=== PATIENT | male | born 1975 | race Caucasian/White ===

== ENCOUNTER 2018-03-07 11:02 | Inpatient (IN) | payer OTHER ==
[~2018-03-07] VITALS: Ht 188 cm; Wt 68.0 kg
[2018-03-07 11:30] VITALS: BP 131/83
[2018-03-07] MEDS ORDERED: THIAMINE HCL 200 MG/2 ML VIAL IM ONE (11:45)
[2018-03-07] MEDS ORDERED: ONDANSETRON 4 MG/2 ML VIAL IM PRN (11:45)
[2018-03-07] MEDS ORDERED: LOPERAMIDE HCL 2 MG CAPSULE PO PRN ×2 (11:45)
[2018-03-07] MEDS ORDERED: LORAZEPAM 1 MG TABLET PO PRN ×2 (11:45)
[2018-03-07] MEDS ORDERED: MAG HYDROX/AL HYDROX/SIMETH 30 ML LIQUID UDC PO PRN (11:45)
[2018-03-07] MEDS ORDERED: 5 DAY TAPER OF LORAZEPAM -SERENITY PROTOCOL PO PRN (11:45)
[2018-03-07] MEDS ORDERED: diphenhydrAMINE 50 MG CAPSULE PO PRN (11:45)
[2018-03-07] MEDS ORDERED: LORAZEPAM 2 MG/1 ML VIAL IM PRN (11:45)
[2018-03-07] MEDS ORDERED: MAGNESIUM HYDROXIDE 30 ML LIQUID UDC PO PRN (11:45)
[2018-03-07 12:00] VITALS: BP 131/83
[2018-03-07] MEDS ORDERED: NAPH30DR5 OP (12:29)
[2018-03-07] MEDS ORDERED: PROP10DR2 OP (12:29)
[2018-03-07] MEDS: LORAZEPAM 1 MG TABLET PO SCH ×3 (12:53→20:13)
[2018-03-07] MEDS: ONDANSETRON ODT 4 MG TAB.RAPDIS SL PRN (12:54)
[2018-03-07 12:57] LABS: BASOPHILS # (AUTO) 0.1 K/uL (0.0-8.0); BASOPHILS % (AUTO) 1.3 % (0.0-2.0); EOSINOPHILS % (AUTO) 0.2 % (0.0-7.0); HEMATOCRIT 37.4 % (36.7-47.1); HEMOGLOBIN 12.6 g/dL (12.5-16.3); LYMPHOCYTES # (AUTO) 1.2 K/uL (20.0-40.0); LYMPHOCYTES % (AUTO) 30.8 % (20.5-51.5); MEAN CORPUSCULAR HEMOGLOBIN 31.9 uug (23.8-33.4); MEAN CORPUSCULAR HGB CONC 34 g/dL (32.5-36.3); MEAN CORPUSCULAR VOLUME 94.6 fL (73.0-96.2); MONOCYTES # (AUTO) 0.4 K/uL (2.0-10.0); MONOCYTES % (AUTO) 9.4 % (0.0-11.0); NEUTROPHILS # (AUTO) 2.3 K/uL (1.8-8.9); NEUTROPHILS % (AUTO) 58.3 % (38.5-71.5); PLATELET COUNT (AUTO) 88 K/uL (152-348); RED BLOOD CELL COUNT(AUTO) 3.95 MIL/uL (4.06-5.63)
[2018-03-07 13:19] LABS: BILIRUBIN,TOTAL 0.9 mg/dL (0.2-1.0); CREATININE 0.9 mg/dL (0.6-1.3); MAGNESIUM 1.7 mg/dL (1.8-2.4); POTASSIUM 3.9 mmol/L (3.5-5.1); TOTAL PROTEIN, SERUM 9.8 g/dL (6.4-8.2)
[2018-03-07 14:00] LABS: *AMPHETAMINE, URINE NEGATIVE (NEGATIVE); *BARBITURATE, URINE NEGATIVE (NEGATIVE); *CANNABINOID, URINE NEGATIVE (NEGATIVE); *COCCAINE, URINE NEGATIVE (NEGATIVE); *OPIATE, URINE POSITIVE (NEGATIVE); *PHENCYCLIDINE SCREEN,URINE NEGATIVE (NEGATIVE)
[2018-03-07 15:01] LABS: BAND % (MANUAL) 1 % (0-10); BASOPHILS % (MANUAL) 1 % (0-2); LYMPHOCYTES % (MANUAL) 31 % (20-40); MONOCYTES % (MANUAL) 8 % (2-10); NEUTROPHILS % (MANUAL) 59 % (42-75)
[2018-03-07] MEDS ORDERED: 5 DAY TAPER BUPRENORPHINE -SERENITY PROTOCOL SL PRN (15:15)
[2018-03-07] MEDS ORDERED: ONDANSETRON ODT 4 MG TAB.RAPDIS SL PRN (15:15)
[2018-03-07 16:00] VITALS: BP 129/80
[2018-03-07] MEDS ORDERED: MAGNESIUM OXIDE 400 MG TABLET PO ONE (16:00)
[2018-03-07] MEDS: METHOCARBAMOL 750 MG TABLET PO PRN (16:30)
[2018-03-07] MEDS: BUPRENORPHINE HCL 2 MG TAB.SUBL SL PRN ×2 (16:57→23:43)
[2018-03-07 20:00] VITALS: BP 137/87
[2018-03-07] MEDS: IBUPROFEN 400 MG TABLET PO PRN (20:13)
[2018-03-07 23:45] VITALS: BP 133/82
[2018-03-08] VITALS (7 sets, daily range): BP systolic 116–140; BP diastolic 70–89
[2018-03-08] MEDS: BUPRENORPHINE HCL 2 MG TAB.SUBL SL PRN (06:55)
[2018-03-08] MEDS: METHOCARBAMOL 750 MG TABLET PO PRN ×3 (06:55→18:28)
[2018-03-08] MEDS ORDERED: TUBERCULIN,PURIF.PROT.DERIV. 5 TU/0.1 ML TEST ID ONE (09:00)
[2018-03-08] MEDS: LORAZEPAM 1 MG TABLET PO SCH ×3 (09:09→20:09)
[2018-03-08] MEDS: MULTIVITAMINS,THERAPEUTIC TABLET PO SCH (09:09)
[2018-03-08] MEDS: THIAMINE HCL 100 MG TABLET PO SCH (09:09)
[2018-03-08] MEDS: FOLIC ACID 1 MG TABLET PO SCH (09:09)
[2018-03-08] MEDS: IBUPROFEN 400 MG TABLET PO PRN ×2 (09:09→18:28)
[2018-03-08] MEDS: BUPRENORPHINE HCL 2 MG TAB.SUBL SL SCH ×4 (09:10→20:09)
[2018-03-08 12:09] LABS: HEPATITIS B SURFACE AG Negative (Negative)
[2018-03-08] MEDS: TRAZODONE 50 MG TABLET PO PRN (21:36)
[2018-03-08] MEDS: ACETAMINOPHEN 325 MG TABLET PO PRN (21:36)
[2018-03-09 07:57] LABS: BASOPHILS % (AUTO) 0.6 % (0.0-2.0); EOSINOPHILS % (AUTO) 0.6 % (0.0-7.0); HEMATOCRIT 37.6 % (36.7-47.1); HEMOGLOBIN 12.8 g/dL (12.5-16.3); LYMPHOCYTES # (AUTO) 0.8 K/uL (20.0-40.0); LYMPHOCYTES % (AUTO) 30.8 % (20.5-51.5); MEAN CORPUSCULAR HEMOGLOBIN 32.2 uug (23.8-33.4); MEAN CORPUSCULAR HGB CONC 34 g/dL (32.5-36.3); MEAN CORPUSCULAR VOLUME 94.9 fL (73.0-96.2); MONOCYTES # (AUTO) 0.3 K/uL (2.0-10.0); MONOCYTES % (AUTO) 10.1 % (0.0-11.0); NEUTROPHILS # (AUTO) 1.6 K/uL (1.8-8.9); NEUTROPHILS % (AUTO) 57.9 % (38.5-71.5); RED BLOOD CELL COUNT(AUTO) 3.96 MIL/uL (4.06-5.63)
[2018-03-09] MEDS: THIAMINE HCL 100 MG TABLET PO SCH (07:59)
[2018-03-09] MEDS: FOLIC ACID 1 MG TABLET PO SCH (07:59)
[2018-03-09] MEDS: MULTIVITAMINS,THERAPEUTIC TABLET PO SCH (07:59)
[2018-03-09] MEDS: IBUPROFEN 400 MG TABLET PO PRN ×3 (07:59→20:27)
[2018-03-09 08:00] VITALS: BP 135/95
[2018-03-09 08:00] LABS: PLATELET COUNT (AUTO) 60 K/uL (152-348); WHITE BLOOD COUNT (AUTO) 2.8 K/uL (3.6-10.2)
[2018-03-09] MEDS: BUPRENORPHINE HCL 2 MG TAB.SUBL SL SCH ×3 (08:00→20:28)
[2018-03-09] MEDS: METHOCARBAMOL 750 MG TABLET PO PRN ×2 (08:00→16:26)
[2018-03-09] MEDS: LORAZEPAM 1 MG TABLET PO SCH ×4 (08:00→20:27)
[2018-03-09 08:13] LABS: BILIRUBIN,TOTAL 1.5 mg/dL (0.2-1.0); CREATININE 0.9 mg/dL (0.6-1.3); MAGNESIUM 1.7 mg/dL (1.8-2.4); POTASSIUM 3.7 mmol/L (3.5-5.1); TOTAL PROTEIN, SERUM 8.7 g/dL (6.4-8.2)
[2018-03-09 08:39] LABS: MAGNESIUM 1.7 mg/dL (1.8-2.4)
[2018-03-09 10:21] LABS: BAND % (MANUAL) 2 % (0-10); BASOPHILS % (MANUAL) 1 % (0-2); LYMPHOCYTES % (MANUAL) 34 % (20-40); MONOCYTES % (MANUAL) 8 % (2-10); NEUTROPHILS % (MANUAL) 55 % (42-75)
[2018-03-09] MEDS: HYDROXYZINE PAMOATE 25 MG CAPSULE PO PRN (10:31)
[2018-03-09] MEDS: ESCITALOPRAM OXALATE 10 MG TABLET PO SCH (10:31)
[2018-03-09] MEDS: CLONIDINE HCL 0.1 MG TABLET PO PRN (10:31)
[2018-03-09 12:00] VITALS: BP 106/79
[2018-03-09] MEDS ORDERED: MAGNESIUM OXIDE 400 MG TABLET PO ONE (12:00)
[2018-03-09] MEDS: LIDOCAINE 5% PATCH TD SCH (14:01)
[2018-03-09 16:00] VITALS: BP 143/80
[2018-03-09 20:00] VITALS: BP 127/84
[2018-03-09] MEDS: TRAZODONE 50 MG TABLET PO PRN (20:27)
[2018-03-10] VITALS: BP 125/87
[2018-03-10 04:00] VITALS: BP 122/75
[2018-03-10 08:00] VITALS: BP 136/70
[2018-03-10] MEDS: LIDOCAINE 5% PATCH TD SCH (08:24)
[2018-03-10] MEDS: MAGNESIUM CHLORIDE 64 MG TABLET.SA PO SCH (08:24)
[2018-03-10] MEDS: THIAMINE HCL 100 MG TABLET PO SCH (08:24)
[2018-03-10] MEDS: FOLIC ACID 1 MG TABLET PO SCH (08:25)
[2018-03-10] MEDS: IBUPROFEN 400 MG TABLET PO PRN ×2 (08:25→20:36)
[2018-03-10] MEDS: MULTIVITAMINS,THERAPEUTIC TABLET PO SCH (08:25)
[2018-03-10] MEDS: METHOCARBAMOL 750 MG TABLET PO PRN ×2 (08:25→20:36)
[2018-03-10] MEDS: ESCITALOPRAM OXALATE 10 MG TABLET PO SCH (08:25)
[2018-03-10] MEDS: LORAZEPAM 1 MG TABLET PO SCH ×3 (08:25→20:36)
[2018-03-10] MEDS: ONDANSETRON ODT 4 MG TAB.RAPDIS SL PRN (08:36)
[2018-03-10] MEDS ORDERED: BUPRENORPHINE HCL 2 MG TAB.SUBL SL SCH (09:00)
[2018-03-10] MEDS: CLONIDINE HCL 0.1 MG TABLET PO PRN (10:59)
[2018-03-10 12:10] VITALS: BP 100/63
[2018-03-10] MEDS ORDERED: KETOROLAC TROMETHAMINE 60 MG INJ IM ONE (14:45)
[2018-03-10] MEDS: BUPRENORPHINE HCL 2 MG TAB.SUBL SL SCH ×2 (14:58→20:36)
[2018-03-10 16:00] VITALS: BP 123/84
[2018-03-10 20:00] VITALS: BP 128/80
[2018-03-10] MEDS: TRAZODONE 50 MG TABLET PO PRN (20:35)
[2018-03-11] VITALS: BP 132/84
[2018-03-11 08:00] VITALS: BP 126/81
[2018-03-11] MEDS: LORAZEPAM 1 MG TABLET PO SCH ×2 (08:15→20:47)
[2018-03-11] MEDS: MULTIVITAMINS,THERAPEUTIC TABLET PO SCH (08:15)
[2018-03-11] MEDS: BUPRENORPHINE HCL 2 MG TAB.SUBL SL SCH ×3 (08:15→20:47)
[2018-03-11] MEDS: LIDOCAINE 5% PATCH TD SCH (08:15)
[2018-03-11] MEDS: THIAMINE HCL 100 MG TABLET PO SCH (08:15)
[2018-03-11] MEDS: MAGNESIUM CHLORIDE 64 MG TABLET.SA PO SCH (08:15)
[2018-03-11] MEDS: ESCITALOPRAM OXALATE 10 MG TABLET PO SCH (08:15)
[2018-03-11] MEDS: FOLIC ACID 1 MG TABLET PO SCH (08:16)
[2018-03-11 08:26] LABS: BASOPHILS % (AUTO) 0.8 % (0.0-2.0); HEMATOCRIT 37.6 % (36.7-47.1); HEMOGLOBIN 12.9 g/dL (12.5-16.3); LYMPHOCYTES # (AUTO) 0.7 K/uL (20.0-40.0); LYMPHOCYTES % (AUTO) 19.7 % (20.5-51.5); MEAN CORPUSCULAR HEMOGLOBIN 32.4 uug (23.8-33.4); MEAN CORPUSCULAR HGB CONC 34 g/dL (32.5-36.3); MEAN CORPUSCULAR VOLUME 94.7 fL (73.0-96.2); MONOCYTES # (AUTO) 0.3 K/uL (2.0-10.0); MONOCYTES % (AUTO) 8.2 % (0.0-11.0); NEUTROPHILS # (AUTO) 2.4 K/uL (1.8-8.9); NEUTROPHILS % (AUTO) 70.3 % (38.5-71.5); PLATELET COUNT (AUTO) 69 K/uL (152-348); RED BLOOD CELL COUNT(AUTO) 3.97 MIL/uL (4.06-5.63); WHITE BLOOD COUNT (AUTO) 3.5 K/uL (3.6-10.2)
[2018-03-11 08:57] LABS: BILIRUBIN,TOTAL 1.4 mg/dL (0.2-1.0); CREATININE 0.9 mg/dL (0.6-1.3); POTASSIUM 4.1 mmol/L (3.5-5.1); TOTAL PROTEIN, SERUM 8.6 g/dL (6.4-8.2)
[2018-03-11 09:44] LABS: BAND % (MANUAL) 1 % (0-10); BASOPHILS % (MANUAL) 1 % (0-2); LYMPHOCYTES % (MANUAL) 22 % (20-40); MONOCYTES % (MANUAL) 8 % (2-10); NEUTROPHILS % (MANUAL) 68 % (42-75)
[2018-03-11 12:00] VITALS: BP 138/88
[2018-03-11] MEDS ORDERED: KETOROLAC TROMETHAMINE 10 MG TABLET PO PRN (14:45)
[2018-03-11 16:00] VITALS: BP 141/84
[2018-03-11] MEDS: HYDROXYZINE PAMOATE 25 MG CAPSULE PO PRN (17:28)
[2018-03-11 20:00] VITALS: BP 147/90
[2018-03-11] MEDS: TRAZODONE 50 MG TABLET PO PRN (20:46)
[2018-03-11] MEDS: IBUPROFEN 400 MG TABLET PO PRN (20:47)
[2018-03-12 08:00] VITALS: BP 131/83
[2018-03-12] MEDS ORDERED: BUPRENORPHINE HCL 2 MG TAB.SUBL SL SCH (09:00)
[2018-03-12] MEDS: FOLIC ACID 1 MG TABLET PO SCH (09:21)
[2018-03-12] MEDS: MAGNESIUM CHLORIDE 64 MG TABLET.SA PO SCH (09:21)
[2018-03-12] MEDS: THIAMINE HCL 100 MG TABLET PO SCH (09:21)
[2018-03-12] MEDS: MULTIVITAMINS,THERAPEUTIC TABLET PO SCH (09:21)
[2018-03-12] MEDS: ESCITALOPRAM OXALATE 10 MG TABLET PO SCH (09:21)
[2018-03-12] MEDS: LIDOCAINE 5% PATCH TD SCH (09:22)
[2018-03-12 12:00] VITALS: BP 135/90
[2018-03-12] MEDS: HYDROXYZINE PAMOATE 25 MG CAPSULE PO PRN (15:00)
[2018-03-12] MEDS: CLONIDINE HCL 0.1 MG TABLET PO PRN ×2 (15:00→20:48)
[2018-03-12 16:00] VITALS: BP 131/86
[2018-03-12 20:00] VITALS: BP 139/81
[2018-03-12] MEDS: ACETAMINOPHEN 325 MG TABLET PO PRN (20:49)
[2018-03-12] MEDS: TRAZODONE 50 MG TABLET PO PRN (21:41)
[2018-03-13 06:00] VITALS: BP 128/88
[2018-03-13] MEDS: METHOCARBAMOL 750 MG TABLET PO PRN (06:25)
[2018-03-13] MEDS: HYDROXYZINE PAMOATE 25 MG CAPSULE PO PRN (06:25)
[2018-03-13 08:02] VITALS: BP 121/80
[2018-03-13] MEDS: FOLIC ACID 1 MG TABLET PO SCH (08:30)
[2018-03-13] MEDS: MULTIVITAMINS,THERAPEUTIC TABLET PO SCH (08:30)
[2018-03-13] MEDS: LIDOCAINE 5% PATCH TD SCH (08:30)
[2018-03-13] MEDS: MAGNESIUM CHLORIDE 64 MG TABLET.SA PO SCH (08:30)
[2018-03-13] MEDS: THIAMINE HCL 100 MG TABLET PO SCH (08:30)
[2018-03-13] MEDS ORDERED: ESCITALOPRAM OXALATE 10 MG TABLET PO SCH (09:00)
[2018-03-14 14:06] LABS: *VITAMIN D 25-OH VIT D 14 ng/mL (.); *VITAMIN D 25-OH, D2 <1.0 ng/mL (.); *VITAMIN D 25-OH, D3 14 ng/mL (.)
== END 2018-03-13 09:42 | disposition home or self-care (01) | DRG 895 ==
LOC: SRC 11:21
PROVIDERS: ADMIT Family Medicine; ATTEND Family Medicine
PROC: HZ31ZZZ Individual Counseling for Substance Abuse Treatment, Behavioral (ICD-10-PCS; 2018-03-06)
PROC: HZ2ZZZZ Detoxification Services for Substance Abuse Treatment (ICD-10-PCS; principal; 2018-03-07)
PROC: HZ41ZZZ Group Counseling for Substance Abuse Treatment, Behavioral (ICD-10-PCS; 2018-03-09)
DX: F10.230 Alcohol dependence with withdrawal, uncomplicated (principal); F11.23 Opioid dependence with withdrawal; Y90.9 Presence of alcohol in blood, level not specified; E83.42 Hypomagnesemia; R74.0 Nonspecific elevation of levels of transaminase and lactic acid dehydrogenase [LDH]; F41.9 Anxiety disorder, unspecified; G47.00 Insomnia, unspecified; G89.29 Other chronic pain; M54.5 Low back pain
CPT/HCPCS: 36415; 70030-TC; 80307; 80361; 83690; 83735; 84207; 85025; 86580; 86592; 86705; 86803; 87340; 87806; G0480; J3411; Q0162